=== PATIENT | male | born 1960 | race Caucasian/White ===

== ENCOUNTER 2018-04-04 16:44 | Inpatient (IN) | payer OTHER ==
[~2018-04-04] VITALS: Ht 175.3 cm; Wt 177.8 kg
[2018-04-04 16:45] VITALS: BP_SYST 155
[2018-04-04] MEDS ORDERED: NACL 0.9% 1,000 ML IV ONE (16:47)
[2018-04-04] MEDS ORDERED: MORPHINE 4 MG/ML INJ. SYRINGE IVP ONE (17:00)
[2018-04-04] MEDS ORDERED: ONDANSETRON HCL 4 MG/2 ML VIAL IVP ONE (17:00)
[2018-04-04 17:27] LABS: CALCIUM 9.4 mg/dL (8.4-11.0); CREATININE 0.9 mg/dL (0.55-1.30); POTASSIUM 3.8 mmol/L (3.5-5.1)
[2018-04-04 17:32] LABS: ALBUMIN 3.5 g/dL (3.4-4.8); TOTAL BILIRUBIN 0.4 mg/dL (0.0-1.0)
[2018-04-04 17:37] LABS: WHITE BLOOD COUNT (AUTO) 9.2 K/uL (4.8-10.8)
[2018-04-04 17:38] LABS: HEMATOCRIT 47.5 % (36-54); HEMOGLOBIN 15.1 g/dL (14.0-18.0); MEAN CORPUSCULAR HEMOGLOBIN 27 pg (27-31); MEAN CORPUSCULAR HGB CONC 32 % (32-36); MEAN CORPUSCULAR VOLUME 85 fL (79.0-98.0); NEUTROPHILS % (AUTO) 74.5 % (40.0-70.0); PLATELET COUNT (AUTO) 269 K/uL (130-430); RED BLOOD CELL COUNT(AUTO) 5.63 MIL/uL (4.2-6.2); RED CELL DISTRIBUTION WIDTH 14.5 % (9.0-15.0)
[2018-04-04 17:39] LABS: BASOPHILS # (AUTO) 0.1 K/uL (0.0-0.2); BASOPHILS % (AUTO) 1.2 % (0.0-2.0); EOSINOPHILS # (AUTO) 0.2 K/uL (0.0-0.4); EOSINOPHILS % (AUTO) 1.7 % (0.0-4.0); LYMPHOCYTES # (AUTO) 1.4 K/uL (1.0-5.5); LYMPHOCYTES % (AUTO) 15.1 % (20.5-51.5); MONOCYTES # (AUTO) 0.7 K/uL (0.0-1.0); MONOCYTES % (AUTO) 7.5 % (1.7-9.3); NEUTROPHILS # (AUTO) 6.8 K/uL (1.8-7.7)
[2018-04-04] MEDS ORDERED: LORazepam 2 MG/ML VIAL (FOR ER USE) IVP ONE (19:30)
[2018-04-04] MEDS ORDERED: TEST75GE TP (20:03)
[2018-04-04] MEDS ORDERED: ACETAMINOPHEN 325 MG TABLET PO PRN (20:15)
[2018-04-04] MEDS ORDERED: ONDANSETRON HCL 4 MG/2 ML VIAL IVP PRN (20:15)
[2018-04-04 20:49] VITALS: BP_SYST 154
[2018-04-04] MEDS: MORPHINE 4 MG/ML INJ. SYRINGE IVP PRN (21:47)
[2018-04-04] MEDS ORDERED: TEMAZEPAM 15 MG CAPSULE PO PRN (22:00)
[2018-04-04] MEDS ORDERED: DIPHENHYDRAMINE INJ 50 MG/ML VIAL IVP PRN (22:00)
[2018-04-04] MEDS: DOCUSATE SODIUM 250 MG CAPSULE PO SCH (22:00)
[2018-04-04] MEDS ORDERED: PEG 400/HYPROMELLOSE/GLYCERIN 15 ML DROPS OP SCH (23:00)
[2018-04-04] MEDS ORDERED: BISACODYL 5 MG TABLET.DR (DULCOLAX) PO PRN (23:00)
[2018-04-05] MEDS: DICLOFENAC SODIUM 25 MG TABLET.DR PO SCH ×3 (00:05→21:16)
[2018-04-05 00:09] VITALS: BP_SYST 154
[2018-04-05] MEDS: MORPHINE 4 MG/ML INJ. SYRINGE IVP PRN ×4 (03:22→21:01)
[2018-04-05] MEDS: PEG 400/HYPROMELLOSE/GLYCERIN 15 ML DROPS OP SCH ×4 (09:00→21:17)
[2018-04-05] MEDS: DOCUSATE SODIUM 250 MG CAPSULE PO SCH ×2 (09:00→21:00)
[2018-04-05 09:56] VITALS: BP_SYST 145
[2018-04-05 15:31] VITALS: BP_SYST 146
[2018-04-05] MEDS: HYDROcodone/ACETAMIN 10-325 MG TAB PO PRN (17:15)
[2018-04-05 20:00] VITALS: BP_SYST 135
[2018-04-05] MEDS: METHOCARBAMOL 500 MG TABLET PO SCH (23:27)
[2018-04-06] VITALS: BP_SYST 141
[2018-04-06] MEDS: MORPHINE 4 MG/ML INJ. SYRINGE IVP PRN ×5 (01:51→21:39)
[2018-04-06 08:00] VITALS: BP_SYST 136
[2018-04-06] MEDS: PEG 400/HYPROMELLOSE/GLYCERIN 15 ML DROPS OP SCH ×4 (08:27→21:38)
[2018-04-06] MEDS: DOCUSATE SODIUM 250 MG CAPSULE PO SCH ×2 (08:28→21:00)
[2018-04-06] MEDS: DICLOFENAC SODIUM 25 MG TABLET.DR PO SCH ×2 (08:28→21:38)
[2018-04-06] MEDS: METHOCARBAMOL 500 MG TABLET PO SCH ×4 (08:28→21:38)
[2018-04-06 12:13] VITALS: BP_SYST 140
[2018-04-06] MEDS ORDERED: BISACODYL 5 MG TABLET.DR (DULCOLAX) PO PRN (14:45)
[2018-04-06] MEDS ORDERED: BISACODYL 5 MG TABLET.DR (DULCOLAX) PO ONE (14:45)
[2018-04-06 16:00] VITALS: BP_SYST 124
[2018-04-06 20:00] VITALS: BP_SYST 153
[2018-04-06] MEDS: HYDROcodone/ACETAMIN 10-325 MG TAB PO PRN (23:54)
[2018-04-07] VITALS (7 sets, daily range): BP systolic 98–149
[2018-04-07] MEDS: PEG 400/HYPROMELLOSE/GLYCERIN 15 ML DROPS OP SCH ×4 (09:00→21:12)
[2018-04-07] MEDS: DOCUSATE SODIUM 250 MG CAPSULE PO SCH ×2 (09:00→21:00)
[2018-04-07] MEDS: MORPHINE 4 MG/ML INJ. SYRINGE IVP PRN ×3 (10:00→21:05)
[2018-04-07] MEDS: DICLOFENAC SODIUM 25 MG TABLET.DR PO SCH ×2 (10:03→21:13)
[2018-04-07] MEDS: METHOCARBAMOL 500 MG TABLET PO SCH ×3 (10:04→21:13)
[2018-04-07] MEDS: HYDROcodone/ACETAMIN 10-325 MG TAB PO PRN (14:24)
[2018-04-08] MEDS: MORPHINE 4 MG/ML INJ. SYRINGE IVP PRN ×2 (02:18→09:43)
[2018-04-08] MEDS: HYDROcodone/ACETAMIN 10-325 MG TAB PO PRN (05:30)
[2018-04-08 07:51] VITALS: BP_SYST 124
[2018-04-08] MEDS: PEG 400/HYPROMELLOSE/GLYCERIN 15 ML DROPS OP SCH ×2 (09:00→13:00)
[2018-04-08] MEDS: DOCUSATE SODIUM 250 MG CAPSULE PO SCH (09:00)
[2018-04-08] MEDS: METHOCARBAMOL 500 MG TABLET PO SCH (09:42)
[2018-04-08] MEDS: DICLOFENAC SODIUM 25 MG TABLET.DR PO SCH (09:43)
[2018-04-08 10:27] VITALS: BP_SYST 124
[2018-04-08 11:49] VITALS: BP_SYST 137
[2018-04-08] MEDS ORDERED: METH500T PO (13:04)
[2018-04-08] MEDS ORDERED: DICL50TA9 PO (13:04)
[2018-04-08] MEDS ORDERED: DOCU250C14 PO (13:05)
[2018-04-08] MEDS ORDERED: BISA-79 PO (13:05)
[2018-04-08 13:20] VITALS: BP_SYST 137
== END 2018-04-08 14:06 | disposition home or self-care (01) | DRG 552 ==
LOC: SED 16:44 → SMU 20:09
PROVIDERS: ADMIT Internal Medicine; ATTEND Internal Medicine
DX: M47.897 Other spondylosis, lumbosacral region (principal); E23.0 Hypopituitarism; Z68.43 Body mass index [BMI] 50.0-59.9, adult; E66.01 Morbid (severe) obesity due to excess calories; G89.29 Other chronic pain; M54.9 Dorsalgia, unspecified; G47.33 Obstructive sleep apnea (adult) (pediatric); K59.00 Constipation, unspecified
CPT/HCPCS: 36415; 72131; 80053; 85025; 94660; 94760; 96361; 96374; 96375; 99285; J2060; J2270; J2405

== ENCOUNTER 2018-06-13 21:58 | Emergency (ER) | payer OTHER ==
[~2018-06-13] VITALS: Ht 175.3 cm; Wt 170.1 kg
[~2018-06-13 21:58] MED LIST: BISA-79 PO; DICL50TA9 PO; DOCU250C14 PO; METH500T PO; TEST75GE TP
[2018-06-13 22:35] VITALS: BP_SYST 153
--- NOTE | 2018-06-13 23:54 | NUR ---
Javier stanley in ED - 06/14/18 at 0013 by SDEDAJ Pt moved to ER bed 01.
--- NOTE | 2018-06-13 23:55 | NUR ---
PT TO BED 1
--- NOTE | 2018-06-13 23:55 | NUR ---
Pt c/o burning and swelling to groin x 24 hours. Pt states that he has a "perianal fistula" starting in rectum and coming out into groin. 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 x 5 days. Area beneath Right scrotum erythemic and swollen, no drainage to site. Pt states that he called the [facility] and was instructed to go to ER.
[2018-06-14] MEDS ORDERED: LIDOCAINE 2%, 20 ML MDV INJ ONE
[2018-06-14] MEDS ORDERED: fentaNYL CITRATE/PF 100 MCG/2 ML AMP IVP ONE
[2018-06-14] MEDS ORDERED: NACL 0.9% 1,000 ML IV ONE
[2018-06-14] MEDS ORDERED: LORazepam 2 MG/ML VIAL (FOR ER USE) IVP ONE
--- NOTE | 2018-06-14 00:13 | NUR ---
Dr. Johns at bedside for I&D. Pt premedicated with Ativan and Fentanyl.
[2018-06-14] MEDS ORDERED: SULFAMETHOXAZOLE/TRIMETHOPR DS 1 TABLET PO ONE (00:45)
--- NOTE | 2018-06-14 00:55 | NUR ---
Dressing consisting of nonadhesive gauze x 2, several layers 4x4 gauze, and abdominal pad applied to site of I&D at the underside of scrotum, which is to be suspended by underwear and shorts.
--- NOTE | 2018-06-14 01:00 | NUR ---
Pt c/o burning to I&D site. Dr. Johns notified.
[2018-06-14] MEDS ORDERED: KETOROLAC TROMETHAMINE 30 MG VIAL IVP ONE (01:15)
--- NOTE | 2018-06-14 01:42 | NUR ---
Pt resting quietly, even and non-labored respirations, VSS. NAD.
--- NOTE | 2018-06-14 03:25 | NUR ---
Pt AAOx4, denies c/o pain or discomfort, no needs verbalized at this time. Pt up for discharge, but still groggy. Pt drove himself to ER. Pt to rest until effects of Fentanyl subside. VSS, NAD.
--- NOTE | 2018-06-14 04:30 | NUR ---
Resting quietly, even and non-labored respirations, VSS, NAD.
--- NOTE | 2018-06-14 04:45 | NUR ---
Pt wakes up and states "I want to go home." Pt AAOx4, road tested prior to discharge, ambulates with steady gait.
[2018-06-14 05:02] VITALS: BP_SYST 128
--- NOTE | 2018-06-14 05:02 | NUR ---
Patient given written and verbal discharge instructions and verbalizes understanding. ER MD discussed with patient the results and treatment provided. Patient in stable condition. ID arm band removed. IV catheter removed intact and dressing applied, no active bleeding. Rx of Bactrim DS and Motrin given. Patient educated on pain management and to follow up with PMD. Pain Scale 0/10. Opportunity for questions provided and answered. Medication side effect fact sheet provided.
== END 2018-06-14 05:02 | disposition home or self-care (01) ==
LOC: SED 21:58
DX: N49.2 Inflammatory disorders of scrotum (principal); R03.0 Elevated blood-pressure reading, without diagnosis of hypertension; Z79.899 Other long term (current) drug therapy
CPT/HCPCS: 55100; 96374; 96375; 99284; J1885; J2001; J2060; J3010; J7030

== ENCOUNTER 2019-01-24 17:05 | Emergency (ER) | payer OTHER ==
[~2019-01-24] VITALS: Ht 175.3 cm; Wt 178.3 kg
[2019-01-24 17:15] VITALS: BP_SYST 186
[2019-01-24] MEDS ORDERED: KETOROLAC TROMETHAMINE 60 MG/2 ML VIAL IM ONE (17:30)
[2019-01-24 18:24] VITALS: BP_SYST 130
[2019-01-26] MEDS ORDERED: NAPR-690 PO (12:38)
[2019-01-26] MEDS ORDERED: LISI-209 PO (12:38)
== END 2019-01-24 18:24 | disposition home or self-care (01) ==
LOC: SED 17:05
DX: G89.29 Other chronic pain (principal); M54.9 Dorsalgia, unspecified; I10 Essential (primary) hypertension; F32.9 Major depressive disorder, single episode, unspecified; Z79.899 Other long term (current) drug therapy
CPT/HCPCS: 96372; 99283; J1885

== ENCOUNTER 2019-03-28 08:25 | Emergency (ER) | payer OTHER ==
[~2019-03-28] VITALS: Ht 175.3 cm; Wt 168.3 kg
[~2019-03-28 08:25] MED LIST changes: -BISA-79 PO; -DICL50TA9 PO; -DOCU250C14 PO; +LISI-209 PO; +NAPR-690 PO; -TEST75GE TP
[2019-03-28 08:35] VITALS: BP_SYST 156
--- NOTE | 2019-03-28 08:46 | NUR ---
Patient to ER bed 7 to gown for evaluation. Side rails up. Report given to Stephy ROGERS.
--- NOTE | 2019-03-28 08:51 | NUR ---
Patient presented to ER with C/O scrotum swelling and pain. Patient A&Ox4, ambulatory to ER, afebrile, skin pink & warm, cap refill <3, pain 4/10 to scrotum. swelling & reddness to scrotum. Patient states he has pain, swelling and reddness x3 days. Patiuent staes he has hx of Rectal-scrotal fistula, HTN, and back pain.
--- NOTE | 2019-03-28 08:51 | NUR ---
Note lizeth in EDM - 03/28/19 at 1046 by SDEDTD Patient presented to ER with C/O scrotum swelling and pain. Patient A&Ox4, ambulatory to ER, afebrile, skin pink & warm, cap refill <3, pain 4/10 to scrotum. swelling & reddness to scrotum. Patient states he has pain, swelling and reddness since
--- NOTE | 2019-03-28 08:51 | NUR ---
Javier stanley in EDM - 03/28/19 at 1046 by SDEDTD Patient presented to ER with C/O scrotum swelling and pain. Patient A&Ox4, ambulatory to ER, afebrile, skin pink & warm, cap refill <3, pain 02/22 to scrotum
--- NOTE | 2019-03-28 08:52 | NUR ---
ER Dr. Mcclain at bedside examining patient.
[2019-03-28] MEDS ORDERED: MORPHINE 4 MG/ML INJ. SYRINGE IVP ONE (09:00)
[2019-03-28] MEDS ORDERED: ONDANSETRON HCL 4 MG/2 ML VIAL IVP ONE (09:00)
[2019-03-28 09:32] LABS: BASOPHILS % (AUTO) 0.3 % (0.0-2.0); EOSINOPHILS # (AUTO) 0.2 K/uL (0.0-0.4); EOSINOPHILS % (AUTO) 1.6 % (0.0-4.0); HEMATOCRIT 45.5 % (36-54); HEMOGLOBIN 15.1 g/dL (14.0-18.0); LYMPHOCYTES # (AUTO) 1.2 K/uL (1.0-5.5); LYMPHOCYTES % (AUTO) 11.4 % (20.5-51.5); MEAN CORPUSCULAR HEMOGLOBIN 29 pg (27-31); MEAN CORPUSCULAR HGB CONC 33 % (32-36); MEAN CORPUSCULAR VOLUME 86 fL (79.0-98.0); MONOCYTES # (AUTO) 0.8 K/uL (0.0-1.0); MONOCYTES % (AUTO) 7.3 % (1.7-9.3); NEUTROPHILS # (AUTO) 8.2 K/uL (1.8-7.7); NEUTROPHILS % (AUTO) 79.4 % (40.0-70.0); PLATELET COUNT (AUTO) 250 K/uL (130-430); RED BLOOD CELL COUNT(AUTO) 5.27 MIL/uL (4.2-6.2); RED CELL DISTRIBUTION WIDTH 14.8 % (9.0-15.0); WHITE BLOOD COUNT (AUTO) 10.3 K/uL (4.8-10.8)
[2019-03-28 09:36] LABS: C-REACTIVE PROTEIN QUANT 13.7 mg/dL (0-0.5)
[2019-03-28 09:43] LABS: PROTHROMBIN TIME 10.2 SECS (9.5-12.5)
[2019-03-28 09:49] LABS: CALCIUM 9.6 mg/dL (8.4-11.0); CREATININE 1.08 mg/dL (0.55-1.30); POTASSIUM 3.7 mmol/L (3.5-5.1)
[2019-03-28 09:54] LABS: ALBUMIN 3.5 g/dL (3.4-4.8); TOTAL BILIRUBIN 0.5 mg/dL (0.0-1.0)
[2019-03-28] MEDS ORDERED: IOHEXOL 100 ML IV ONE (09:59)
[2019-03-28] MEDS ORDERED: OXYCODONE/ACETAMINOPHEN *10*mg/325 mg TABLET PO ONE (11:30)
[2019-03-28] MEDS ORDERED: CLINDAMYCIN HCL 150 MG CAPSULE PO ONE (11:30)
--- NOTE | 2019-03-28 13:18 | NUR ---
Pt ambulating to bathroom at this time
[2019-03-28 13:52] VITALS: BP_SYST 148
--- NOTE | 2019-03-28 13:54 | NUR ---
Patient given written and verbal discharge instructions and verbalizes understanding. ER MD discussed with patient the results and treatment provided. Patient in stable condition. ID arm band removed. IV catheter removed intact and dressing applied, no active bleeding. Rx of Percocet and Clindamycin given. Patient educated on pain management and to follow up with PMD. Pain Scale 2/10 tolerable for patient . Opportunity for questions provided and answered. Medication side effect fact sheet provided.
== END 2019-03-28 13:52 | disposition home or self-care (01) ==
LOC: SED 08:25
DX: N36.0 Urethral fistula (principal); J44.9 Chronic obstructive pulmonary disease, unspecified; I10 Essential (primary) hypertension
CPT/HCPCS: 36415; 74177; 80053; 82150; 83605; 83690; 85025; 85610; 85730; 86140; 96374; 96375; 99284; J2270; J2405; Q9967

== ENCOUNTER 2022-12-31 11:16 | Emergency (ER) | payer OTHER ==
[~2022-12-31] VITALS: Ht 175.3 cm; Wt 171.5 kg
--- NOTE | 2022-12-31 11:38 | NUR ---
PT COMES TO ER FROM HOME AMBULATING WITH REPORTS OF GRDAUL ONSET ANTERIOR CHEST WALL PAIN THIS AM AT 0930 WHILE DOING NOTHING-RESOLVED NOW, PAIN FREE, NO SOB. PT ALSO REPORTS A NICOLETTE-ANAL ABSCESS THAT HAS PAIN /, DENIES FEVERS. SKIN W/D/I, RESP EVEN AND UNLABORED, ON RA @98%.
[2022-12-31 11:39] VITALS: BP_SYST 133; PULSE 82; RESP 16; TEMP 98; O2SAT 100
--- NOTE | 2022-12-31 11:42 | NUR ---
DR H[facility]LEY [facility], EKG BEING DONE AT THIS TIME
--- NOTE | 2022-12-31 11:55 | NUR ---
CAGE FIGHTER AT BEDSIDE.
[2022-12-31 12:10] LABS: BASOPHILS % (AUTO) 0.2 % (0.0-2.0); EOSINOPHILS # (AUTO) 0.2 K/uL (0.0-0.4); EOSINOPHILS % (AUTO) 1.2 % (0.0-4.0); HEMATOCRIT 33.2 % (36-54); HEMOGLOBIN 10.4 g/dL (14.0-18.0); LYMPHOCYTES % (AUTO) 6.4 % (20.5-51.5); MEAN CORPUSCULAR HEMOGLOBIN 25 pg (27-31); MEAN CORPUSCULAR HGB CONC 31 % (32-36); MEAN CORPUSCULAR VOLUME 79 fL (79.0-98.0); MONOCYTES # (AUTO) 1.2 K/uL (0.0-1.0); MONOCYTES % (AUTO) 7.9 % (1.7-9.3); NEUTROPHILS # (AUTO) 12.7 K/uL (1.8-7.7); NEUTROPHILS % (AUTO) 84.3 % (40.0-70.0); PLATELET COUNT (AUTO) 293 K/uL (130-430); RED BLOOD CELL COUNT(AUTO) 4.23 MIL/uL (4.2-6.2); RED CELL DISTRIBUTION WIDTH 15.8 % (9.0-15.0); WHITE BLOOD COUNT (AUTO) 15.1 K/uL (4.8-10.8)
[2022-12-31 13:13] LABS: ANION GAP 9 (5-15); CALCIUM 8.8 mg/dL (8.4-11.0); CHLORIDE 99 mmol/L (98-107); CREATININE 1.47 mg/dL (0.55-1.30); GFR AFRICAN AMERICAN 62 mL/min (>90); GLUCOSE 120 mg/dL (74-106); UREA NITROGEN, BLOOD 21 mg/dL (8-21)
[2022-12-31 13:20] LABS: ALANINE AMINOTRANSFERASE 22 U/L (12-78); ALBUMIN 3.1 g/dL (3.4-4.8); ASPARTATE AMINOTRANSFERASE 13 U/L (10-37); TOTAL BILIRUBIN 0.5 mg/dL (0.0-1.0)
--- NOTE | 2022-12-31 13:45 | NUR ---
PT WALKS TO BATHROOM, UNABLE TO URINATE AT THIS TIME. DR HARTLEY INFORMED.
[2022-12-31 15:16] LABS: BILIRUBIN,URINE NEGATIVE (NEGATIVE); BLOOD, URINE NEGATIVE (NEGATIVE); CLARITY/URINE CLEAR (CLEAR); COLOR,URINE YELLOW (YELLOW); GLUCOSE,URINE NEGATIVE (NEGATIVE); KETONES,URINE NEGATIVE (NEGATIVE); LEUKOCYTE ESTERASE ,URINE NEGATIVE (NEGATIVE); NITRITE, URINE NEGATIVE (NEGATIVE); PROTEIN URINE NEGATIVE (NEGATIVE); UROBILINOGEN,URINE 0.2 (0.2-1.0)
[2022-12-31] MEDS ORDERED: SULF1TAB48 PO (15:40)
[2022-12-31] MEDS ORDERED: SULFAMETHOXAZOLE/TRIMETHOPR DS 1 TABLET PO ONE (15:45)
--- NOTE | 2022-12-31 16:42 | NUR ---
PT DISCHARGED BY EULOGIO HOWE RN. BACTRIM RX DIRECTED
[2022-12-31 16:45] VITALS: BP_SYST 133; PULSE 82; RESP 16; TEMP 98; O2SAT 100
== END 2022-12-31 16:42 | disposition home or self-care (01) ==
LOC: SED 11:16
DX: R07.89 Other chest pain (principal); N49.2 Inflammatory disorders of scrotum; N17.9 Acute kidney failure, unspecified; R11.0 Nausea; J44.9 Chronic obstructive pulmonary disease, unspecified; I10 Essential (primary) hypertension; Z79.899 Other long term (current) drug therapy
CPT/HCPCS: 36415; 71045; 80053; 81003; 84484; 85025; 93005; 99285